=== PATIENT | female | born 1995 ===

== ENCOUNTER 2018-08-31 15:24 | Emergency (ER) | payer BC ==
[2018-08-31 16:09] VITALS: BP 119/61
--- NOTE | 2018-08-31 16:25 | ED ---
GI/ HPI - HPI Summary HPI Summary: 23 yr old female with NVD, onset last night, and several emesis. No abdominal pain. She has had diarrhea. Last emesis three hours ago. she missed class and is asking for note for school. - History of Current Complaint Chief Complaint: UCAbdominalPain Time Seen by Provider: 08/31/18 16:11 Stated Complaint: VOMITING Hx Last Menstrual Period: 08/30/18 Pain Intensity: 7 - Allergy/Home Medications Allergies/Adverse Reactions: Allergies Allergy/AdvReac Type Severity Reaction Status Date / Time No Known Allergies Allergy Verified 08/31/18 16:09 Home Medications: Home Medications NK [No Home Medications Reported] 08/31/18 [History Confirmed 08/31/18] PMH/Surg Hx/FS Hx/Imm Hx Infectious Disease History: No Infectious Disease History: Denies: Traveled Outside the [place] in Last 30 Days - Family History Known Family History: Positive: None - Social History Occupation: Student Alcohol Use: Occasionally Substance Use Type: Reports: None Smoking Status (MU): Never Smoked Tobacco Review of Systems Constitutional: Negative Eyes: Negative Positive: Vomiting, Diarrhea, Nausea. Negative: Abdominal Pain All Other Systems Reviewed And Are Negative: Yes Physical Exam Triage Information Reviewed: Yes Vital Signs On Initial Exam: Initial Vitals Temp Pulse Resp BP Pulse Ox 98.1 F 81 16 119/61 100 08/31/18 16:02 08/31/18 16:02 08/31/18 16:02 08/31/18 16:02 08/31/18 16:02 Vital Signs Reviewed: Yes Appearance: Positive: Well-Appearing, No Pain Distress Skin: Positive: Warm, Skin Color Reflects Adequate Perfusion Head/Face: Positive: Normal Head/Face Inspection Eyes: Positive: EOMI ENT: Positive: Normal ENT inspection Neck: Positive: Supple, Nontender Respiratory/Lung Sounds: Positive: Clear to Auscultation, Breath Sounds Present Cardiovascular: Positive: RRR. Negative: Murmur Abdomen Description: Positive: Nontender Musculoskeletal: Positive: Strength/ROM Intact Neurological: Positive: Sensory/Motor Intact, Alert, Oriented to Person Place, Time, CN Intact II-III Psychiatric: Positive: Normal - [place] Coma Scale Best Eye Response: 4 - Spontaneous Best Motor Response: 6 - Obeys Commands Best Verbal Response: 5 - Oriented Coma Scale Total: 15 Diagnostics - Vital Signs Vital Signs Temp Pulse Resp BP Pulse Ox 08/31/18 16:02 98.1 F 81 16 119/61 100 - Laboratory Lab Statement: Any lab studies that have been ordered have been reviewed, and results considered in the medical decision making process. GIGU Course/Dx - Course Course Of Treatment: 23 yr old with gastroenteritis. Note for school. DC home. - Diagnoses Provider Diagnoses: Gastroenteritis Discharge - Sign-Out/Discharge Documenting (check all that apply): Patient Departure All imaging exams completed and their final reports reviewed: No Studies - Discharge Plan Condition: Good Disposition: HOME Patient Education Materials: Gastroenteritis (ED) Forms: *School Release Referrals: No Primary Care Phys,NOPCP [Primary Care Provider] - [facility] [Outside] - Billing Disposition and Condition Condition: GOOD Disposition: Home
== END 2018-08-31 16:32 | disposition home or self-care (01) ==
LOC: UCCORT 15:24 → EDBD 15:24 → UCCORT 16:32
DX: K52.9 Noninfective gastroenteritis and colitis, unspecified (principal)
CPT/HCPCS: 99201; G0463